=== PATIENT | female | born 1985 | race Caucasian/White ===

== ENCOUNTER → 2017-02-27 | Outpatient (REF) | payer MEDICAID, OTHER ==
[2017-03-04 19:56] LABS: Cannabidiol Negative (.)
== END ==
LOC: M LABDRAW1 09:38
PROVIDERS: ATTEND Psychiatry & Neurology Psychiatry
DX: F15.20 Other stimulant dependence, uncomplicated (principal); F12.20 Cannabis dependence, uncomplicated

== ENCOUNTER → 2017-02-27 | Outpatient (CLI) | payer MEDICAID | LOC: M OUTALCOH 07:39 | PROVIDERS: ATTEND Psychiatry & Neurology Psychiatry | DX: F15.20 Other stimulant dependence, uncomplicated (principal); F12.20 Cannabis dependence, uncomplicated ==

== ENCOUNTER 2017-03-17 13:00 | Outpatient (RCR) | payer MEDICAID | END 2017-03-20 | LOC: M OUTALCOH 13:00 | PROVIDERS: ATTEND Psychiatry & Neurology Psychiatry | DX: F15.20 Other stimulant dependence, uncomplicated (principal); F12.20 Cannabis dependence, uncomplicated; F17.210 Nicotine dependence, cigarettes, uncomplicated ==

== ENCOUNTER → 2017-04-20 | Outpatient (RCR) | payer MEDICAID | LOC: M OUTALCOH 03-24 13:00 | PROVIDERS: ATTEND Psychiatry & Neurology Psychiatry | DX: F15.20 Other stimulant dependence, uncomplicated (principal); F12.20 Cannabis dependence, uncomplicated; F17.201 Nicotine dependence, unspecified, in remission ==

== ENCOUNTER 2017-05-17 15:00 | Outpatient (RCR) | payer MEDICAID | END 2017-05-20 | LOC: M OUTALCOH 15:00 | PROVIDERS: ATTEND Psychiatry & Neurology Psychiatry | DX: F15.20 Other stimulant dependence, uncomplicated (principal); F12.20 Cannabis dependence, uncomplicated; F17.210 Nicotine dependence, cigarettes, uncomplicated ==

== ENCOUNTER 2017-07-17 14:00 | Outpatient (RCR) | payer MEDICAID, OTHER, SELFPAY | END 2017-07-20 | LOC: M OUTALCOH 14:00 | PROVIDERS: ATTEND Psychiatry & Neurology Psychiatry | DX: F15.20 Other stimulant dependence, uncomplicated (principal); F12.20 Cannabis dependence, uncomplicated; F17.200 Nicotine dependence, unspecified, uncomplicated ==

== ENCOUNTER 2017-07-24 15:18 | Outpatient (RCR) | payer SELFPAY | END 2017-08-20 | LOC: M OUTALCOH 15:18 | DX: F15.20 Other stimulant dependence, uncomplicated (principal); F12.20 Cannabis dependence, uncomplicated; F17.200 Nicotine dependence, unspecified, uncomplicated ==

== ENCOUNTER 2017-08-23 11:18 | Outpatient (RCR) | payer SELFPAY | END 2017-09-20 | LOC: M OUTALCOH 11:18 | DX: F15.20 Other stimulant dependence, uncomplicated (principal); F12.20 Cannabis dependence, uncomplicated; F17.200 Nicotine dependence, unspecified, uncomplicated ==

== ENCOUNTER 2017-09-22 11:06 | Outpatient (RCR) | payer SELFPAY | END 2017-10-18 | LOC: M OUTALCOH 09-27 08:00 | DX: F15.20 Other stimulant dependence, uncomplicated (principal); F12.20 Cannabis dependence, uncomplicated; F17.200 Nicotine dependence, unspecified, uncomplicated ==

== ENCOUNTER 2017-10-20 16:12 | Outpatient (RCR) | payer SELFPAY | END 2017-11-18 | LOC: M OUTALCOH 16:12 | DX: F15.20 Other stimulant dependence, uncomplicated (principal); F12.20 Cannabis dependence, uncomplicated; F17.200 Nicotine dependence, unspecified, uncomplicated ==

== ENCOUNTER 2017-12-15 09:10 | Outpatient (RCR) | payer SELFPAY | END 2017-12-18 | LOC: M OUTALCOH 09:10 | DX: F15.20 Other stimulant dependence, uncomplicated (principal); F12.20 Cannabis dependence, uncomplicated; F17.200 Nicotine dependence, unspecified, uncomplicated ==

== ENCOUNTER 2017-12-29 09:00 | Outpatient (RCR) | payer SELFPAY | END 2018-01-18 | LOC: M OUTALCOH 09:00 | DX: F15.20 Other stimulant dependence, uncomplicated (principal); F12.20 Cannabis dependence, uncomplicated; F17.200 Nicotine dependence, unspecified, uncomplicated ==

== ENCOUNTER → 2018-05-09 | Outpatient (CLI) | payer OTHER, SELFPAY | LOC: M OUTALCOH 07:54 | DX: Z13.89 Encounter for screening for other disorder (principal); F15.20 Other stimulant dependence, uncomplicated; F12.20 Cannabis dependence, uncomplicated ==

== ENCOUNTER 2018-05-30 15:37 | Outpatient (RCR) | payer MEDICAID | END 2018-06-20 | LOC: M OUTALCOH 06-18 09:00 | DX: F12.20 Cannabis dependence, uncomplicated (principal); F17.200 Nicotine dependence, unspecified, uncomplicated; F15.20 Other stimulant dependence, uncomplicated ==

== ENCOUNTER 2018-06-27 15:00 | Outpatient (RCR) | payer MEDICAID | END 2018-07-20 | LOC: M OUTALCOH 07-11 15:00 | DX: F12.20 Cannabis dependence, uncomplicated (principal); F17.200 Nicotine dependence, unspecified, uncomplicated; F15.20 Other stimulant dependence, uncomplicated ==